=== PATIENT | female | born 1990 | race Caucasian/White ===

== ENCOUNTER 2022-11-04 06:25 | Day surgery (SDC) | payer OTHER ==
[~2022-11-04 06:25] MED LIST: PRENATAL 19 TA1 EACH PO
== END 2022-11-04 15:55 | disposition home or self-care (01) ==
LOC: CIR.AMB 06:25
PROVIDERS: ATTEND Obstetrics & Gynecology
DX: N85.8 Other specified noninflammatory disorders of uterus (principal); N93.8 Other specified abnormal uterine and vaginal bleeding; Z20.822 Contact with and (suspected) exposure to COVID-19